=== PATIENT | male | born 1965 | race Two or more races ===

== ENCOUNTER 2019-11-07 17:01 | Emergency (ER) | payer MEDICAID, OTHER ==
[~2019-11-07] VITALS: Ht 180.3 cm; Wt 88.5 kg
[2019-11-07 17:09] VITALS: BP 161/95
[2019-11-07] MEDS ORDERED: IBUPROFEN 600 MG TAB PO ONE (18:00)
== END 2019-11-07 18:29 | disposition home or self-care (01) ==
LOC: ER 17:01
DX: M79.10 Myalgia, unspecified site (principal)
CPT/HCPCS: 71046

== ENCOUNTER 2020-10-27 19:33 | Inpatient (IN) | payer MEDICAID ==
[~2020-10-27] VITALS: Ht 177.8 cm; Wt 87.0 kg
[2020-10-27] MEDS ORDERED: cloNIDine HCL 0.1 MG TAB PO ONE ×2 (20:15→23:15)
[2020-10-27 20:36] LABS: Basophils # (auto) 0.1 10 ^3/uL (0-0.2); Eosinophils # (auto) 0.1 10 ^3/uL (0-0.8); Eosinophils % (auto) 1.6 % (0.0-7.0); Hematocrit 43.9 % (41.0-53.0); Hemoglobin 14.6 g/dL (13.5-17.5); Lymphocytes # (auto) 1.9 10 ^3/uL (0.4-5.4); Lymphocytes % (auto) 22.9 % (10.0-50.0); Mean Corpuscular Hemoglobin 27.9 pg (28.0-32.0); Mean Corpuscular Hgb Conc. 33.2 g/dL (32.0-36.0); Monocytes # (auto) 0.9 10 ^3/uL (0-1.3); Monocytes % (auto) 10.6 % (0.0-12.0); Neutrophils # (auto) 5.2 10 ^3/uL (1.6-8.6); Neutrophils % (auto) 63.9 % (37.0-80.0); Nucleated Red Blood Cells % 0.2 %; Platelet Count (auto) 235 10^3/uL (140-450); Red Blood Cells 5.23 10^6/uL (4.5-5.90); Red Cell Distribution Width 14.3 % (11.8-14.3); White Blood Cell 8.1 10^3/uL (4.4-10.8)
[2020-10-27 20:50] LABS: Alanine Aminotransferase 59 U/L (16-61); Albumin 2.9 g/dL (3.4-5.0); Anion Gap 8 (5-15); Aspartate Aminotransferase 41 U/L (15-37); Blood Urea Nitrogen 16 mg/dL (7-18); Calcium 8.2 mg/dL (8.5-10.1); Carbon Dioxide 27 mmol/L (21-32); Chloride 107 mmol/L (98-107); GFR African American 72 mL/min; GFR Non-African American 59 mL/min; Glucose 90 mg/dL (74-106); Potassium 4.2 mmol/L (3.5-5.1); Sodium 142 mmol/L (136-145)
[2020-10-27 20:54] LABS: Alkaline Phosphatase 93 U/L (45-117); Bilirubin, Total 0.8 mg/dL (0.2-1.0); Total Protein 6.5 g/dL (6.4-8.2)
[2020-10-27 21:01] LABS: INR 1.01 (0.9-1.15); Partial Thromboplastin Time 26.4 sec (23.0-31.2)
[2020-10-27] MEDS ORDERED: IOPAMIDOL 76 % (ISOVUE-370) 100ML BTL IV ONE (22:08)
[2020-10-27] MEDS ORDERED: SODIUM CHLORIDE 0.9% 1,000 ML IV ONE (23:15)
[2020-10-28] MEDS ORDERED: FUROSEMIDE 20 MG/2 ML VIAL IV ONE (01:00)
[2020-10-28] MEDS ORDERED: ONDANSETRON HCL 4 MG/2 ML VIAL IV PRN (01:00)
[2020-10-28] MEDS ORDERED: TEMAZEPAM 15 MG CAP PO PRN (01:00)
[2020-10-28] MEDS ORDERED: MORPHINE SULF INJ 2 MG/ML SYRINGE 1ML IV PRN (01:00)
[2020-10-28] MEDS ORDERED: NITROGLYCERIN 0.4 MG SL TAB SL PRN (01:00)
[2020-10-28 02:18] LABS: Alcohol, Urine < 3.0 mg/dL (0-10); Amphetamine Screen, Urine POSITIVE (NEGATIVE); Barbiturate Scree,Urine NEGATIVE (NEGATIVE); Benzodiazephine Screen, Urine NEGATIVE (NEGATIVE); Cannabinoid Screen, Urine POSITIVE (NEGATIVE); Cocaine Screen, Urine NEGATIVE (NEGATIVE); Opiate Scree,Urine NEGATIVE (NEGATIVE); Phencyclidine Screen, Urine NEGATIVE (NEGATIVE)
[2020-10-28] MEDS ORDERED: dilTIAZem 25 MG/5 ML VIAL IV ONE (08:15)
[2020-10-28] MEDS: dilTIAZem 120MG ER CAP PO SCH ×2 (08:52→09:52)
[2020-10-28] MEDS ORDERED: ASPirin 81 mg TAB PO SCH (10:00)
[2020-10-28] MEDS ORDERED: ENOXAPARIN SOD 40 MG/0.4 ML SYRINGE SC SCH (10:00)
[2020-10-28] MEDS ORDERED: FUROSEMIDE 40 MG TAB PO SCH (10:00)
[2020-10-28] MEDS: CARVEDILOL 3.125 MG TAB PO SCH ×2 (10:18→21:44)
[2020-10-28] MEDS: FAMOTIDINE 20 MG TAB PO SCH ×2 (10:18→21:42)
[2020-10-28] MEDS ORDERED: AMIODARONE HCL 200 MG TAB PO ONE (14:30)
[2020-10-28 17:00] VITALS: BP 121/92
[2020-10-28] MEDS: ACETAMINOPHEN 325 MG TAB PO PRN (17:03)
[2020-10-28] MEDS: AMIODARONE HCL 200 MG TAB PO SCH (21:42)
[2020-10-28] MEDS: ATORVASTATIN 20 MG TAB PO SCH (21:43)
[2020-10-28] MEDS: ENOXAPARIN SOD 100 MG/1 ML SYRINGE SC SCH (21:43)
[2020-10-28 22:00] VITALS: BP 116/87
[2020-10-29 05:00] VITALS: BP 109/74
[2020-10-29] MEDS: ACETAMINOPHEN 325 MG TAB PO PRN ×2 (06:29→16:23)
[2020-10-29 07:10] LABS: Basophils # (auto) 0.1 10 ^3/uL (0-0.2); Eosinophils # (auto) 0.1 10 ^3/uL (0-0.8); Eosinophils % (auto) 1.5 % (0.0-7.0); Hematocrit 47.3 % (41.0-53.0); Hemoglobin 15.8 g/dL (13.5-17.5); Lymphocytes # (auto) 1.8 10 ^3/uL (0.4-5.4); Lymphocytes % (auto) 20.2 % (10.0-50.0); Mean Corpuscular Hemoglobin 27.8 pg (28.0-32.0); Mean Corpuscular Hgb Conc. 33.5 g/dL (32.0-36.0); Mean Corpuscular Volume 83.1 fL (80.0-100.0); Monocytes # (auto) 0.9 10 ^3/uL (0-1.3); Neutrophils % (auto) 67.3 % (37.0-80.0); Nucleated Red Blood Cells % 0.2 %; Platelet Count (auto) 243 10^3/uL (140-450); Red Cell Distribution Width 13.9 % (11.8-14.3); White Blood Cell 8.9 10^3/uL (4.4-10.8)
[2020-10-29 07:33] LABS: Potassium 3.7 mmol/L (3.5-5.1)
[2020-10-29 07:42] LABS: Albumin 2.9 g/dL (3.4-5.0); BUN/Creatinine Ratio 14.7; Bilirubin, Total 1.9 mg/dL (0.2-1.0); Calcium 9.3 mg/dL (8.5-10.1); Total Protein 6.7 g/dL (6.4-8.2)
[2020-10-29 09:00] VITALS: BP 107/81
[2020-10-29] MEDS ORDERED: ENOXAPARIN SOD 40 MG/0.4 ML SYRINGE SC SCH (10:00)
[2020-10-29] MEDS: FUROSEMIDE 40 MG/4 ML VIAL IV SCH (12:03)
[2020-10-29] MEDS: ASPirin 81 mg TAB PO SCH (12:04)
[2020-10-29] MEDS: AMIODARONE HCL 200 MG TAB PO SCH ×2 (12:05→21:54)
[2020-10-29] MEDS: CARVEDILOL 3.125 MG TAB PO SCH ×2 (12:05→21:55)
[2020-10-29] MEDS: FAMOTIDINE 20 MG TAB PO SCH ×2 (12:06→21:55)
[2020-10-29] MEDS: ENOXAPARIN SOD 100 MG/1 ML SYRINGE SC SCH (12:06)
[2020-10-29 13:00] VITALS: BP 109/79
[2020-10-29] MEDS: DIGOXIN (250MCG/ML) 2 ML AMPULE IV SCH ×2 (15:17→18:31)
[2020-10-29] MEDS ORDERED: HYDROcodone-ACET 5/325MG TAB PO PRN (16:30)
[2020-10-29 16:32] VITALS: BP 123/94
[2020-10-29 21:28] VITALS: BP 132/88
[2020-10-29] MEDS: ATORVASTATIN 20 MG TAB PO SCH (21:54)
[2020-10-29] MEDS: APIXABAN 5 MG TAB PO SCH (21:54)
[2020-10-30] MEDS: DIGOXIN (250MCG/ML) 2 ML AMPULE IV SCH (00:29)
[2020-10-30 05:30] VITALS: BP 113/70
[2020-10-30 08:50] VITALS: BP 127/92
[2020-10-30] MEDS: APIXABAN 5 MG TAB PO SCH (09:05)
[2020-10-30] MEDS: CARVEDILOL 3.125 MG TAB PO SCH (09:05)
[2020-10-30] MEDS: FAMOTIDINE 20 MG TAB PO SCH (09:05)
[2020-10-30] MEDS: AMIODARONE HCL 200 MG TAB PO SCH (09:05)
[2020-10-30] MEDS: ASPirin 81 mg TAB PO SCH (09:05)
[2020-10-30] MEDS: FUROSEMIDE 40 MG/4 ML VIAL IV SCH (09:05)
[2020-10-30] MEDS ORDERED: DIGOXIN 0.25 MG TAB PO SCH (10:00)
[2020-10-30] MEDS ORDERED: DIGO0.12 PO (12:45)
[2020-10-30] MEDS ORDERED: POTA10TA51 PO (12:45)
[2020-10-30] MEDS ORDERED: ATOR10TA52 PO (12:45)
[2020-10-30] MEDS ORDERED: APIX5TAB PO (12:45)
[2020-10-30] MEDS ORDERED: FURO40TA4 PO (12:45)
[2020-10-30] MEDS ORDERED: CAR125T PO (12:46)
[2020-10-30] MEDS ORDERED: ENAL2.5T11 PO (12:46)
== END 2020-10-30 15:20 | disposition home or self-care (01) | DRG 201 ==
LOC: ER 19:33 → TELE 19:34 → TELE-WESTW 10-28 15:49
PROVIDERS: ADMIT Nurse Practitioner; ATTEND Internal Medicine
PROC: 0W993ZZ Drainage of Right Pleural Cavity, Percutaneous Approach (ICD-10-PCS; principal; 2020-10-28)
DX: I48.19 Other persistent atrial fibrillation (principal); E44.0 Moderate protein-calorie malnutrition; I31.3 Pericardial effusion (noninflammatory); I50.41 Acute combined systolic (congestive) and diastolic (congestive) heart failure; J44.9 Chronic obstructive pulmonary disease, unspecified; E78.5 Hyperlipidemia, unspecified; F15.10 Other stimulant abuse, uncomplicated; F12.90 Cannabis use, unspecified, uncomplicated; F17.210 Nicotine dependence, cigarettes, uncomplicated; R73.9 Hyperglycemia, unspecified; R00.0 Tachycardia, unspecified; Z20.822 Contact with and (suspected) exposure to COVID-19; F19.10 Other psychoactive substance abuse, uncomplicated; I42.7 Cardiomyopathy due to drug and external agent; T43.625A Adverse effect of amphetamines, initial encounter; I11.0 Hypertensive heart disease with heart failure; I48.92 Unspecified atrial flutter; Z91.19 Patient's noncompliance with other medical treatment and regimen; Y92.89 Other specified places as the place of occurrence of the external cause; Z68.27 Body mass index [BMI] 27.0-27.9, adult
CPT/HCPCS: 10022; 36415; 70450; 71045; 71275; 76942; 80053; 80061; 80307; 80320; 82728; 83605; 83880; 83986; 84484; 85025; 85379; 85610; 85730; 87070; 87205; 87426; 89051; 93005; 93306; 93970; 96361; 96374; 96375; G0378

== ENCOUNTER 2020-11-07 00:46 | Emergency (ER) | payer MEDICAID ==
[~2020-11-07] VITALS: Ht 180.3 cm; Wt 90.7 kg
[~2020-11-07 00:46] MED LIST: APIX5TAB PO; ATOR10TA52 PO; CAR125T PO; DIGO0.12 PO; ENAL2.5T11 PO; FURO40TA4 PO; POTA10TA51 PO
[2020-11-07 02:23] LABS: Basophils # (auto) 0.1 10 ^3/uL (0-0.2); Eosinophils # (auto) 0.2 10 ^3/uL (0-0.8); Eosinophils % (auto) 2.9 % (0.0-7.0); Hematocrit 46.8 % (41.0-53.0); Hemoglobin 15.6 g/dL (13.5-17.5); Lymphocytes # (auto) 2.5 10 ^3/uL (0.4-5.4); Lymphocytes % (auto) 29.1 % (10.0-50.0); Mean Corpuscular Hemoglobin 27.8 pg (28.0-32.0); Mean Corpuscular Hgb Conc. 33.3 g/dL (32.0-36.0); Mean Corpuscular Volume 83.4 fL (80.0-100.0); Monocytes # (auto) 1.1 10 ^3/uL (0-1.3); Monocytes % (auto) 12.8 % (0.0-12.0); Neutrophils # (auto) 4.6 10 ^3/uL (1.6-8.6); Neutrophils % (auto) 54.2 % (37.0-80.0); Nucleated Red Blood Cells % 0.1 %; Platelet Count (auto) 291 10^3/uL (140-450); Red Blood Cells 5.61 10^6/uL (4.5-5.90); Red Cell Distribution Width 13.7 % (11.8-14.3); White Blood Cell 8.5 10^3/uL (4.4-10.8)
[2020-11-07 02:42] LABS: Calcium 8.5 mg/dL (8.5-10.1); Chloride 104 mmol/L (98-107); Potassium 4.6 mmol/L (3.5-5.1); Sodium 137 mmol/L (136-145)
[2020-11-07 02:45] LABS: Alanine Aminotransferase 87 U/L (16-61); Albumin 3.3 g/dL (3.4-5.0); Anion Gap 8 (5-15); Aspartate Aminotransferase 55 U/L (15-37); BUN/Creatinine Ratio 48.4; Blood Alcohol < 3.0 mg/dL (0-5); Blood Urea Nitrogen 46 mg/dL (7-18); Carbon Dioxide 25 mmol/L (21-32); GFR African American 105 mL/min; GFR Non-African American 87 mL/min; Glucose 103 mg/dL (74-106); Magnesium 2.2 mg/dL (1.6-2.6)
[2020-11-07 02:48] LABS: Alkaline Phosphatase 71 U/L (45-117); Bilirubin, Total 0.4 mg/dL (0.2-1.0); Total Protein 6.8 g/dL (6.4-8.2)
[2020-11-07 02:50] LABS: Salicylate 2.1 mg/dL (2.8-20.0)
[2020-11-07 02:51] LABS: Acetaminophen < 2.0 ug/mL (10-30)
[2020-11-07 04:38] LABS: Alcohol, Urine < 3.0 mg/dL (0-10); Amphetamine Screen, Urine NEGATIVE (NEGATIVE); Barbiturate Scree,Urine NEGATIVE (NEGATIVE); Benzodiazephine Screen, Urine NEGATIVE (NEGATIVE); Cocaine Screen, Urine NEGATIVE (NEGATIVE); Opiate Scree,Urine NEGATIVE (NEGATIVE); Phencyclidine Screen, Urine NEGATIVE (NEGATIVE)
[2020-11-07 04:45] LABS: Cannabinoid Screen, Urine POSITIVE (NEGATIVE)
[2020-11-07 04:58] LABS: Urine Bacteria NONE SEEN /hpf (None Seen); Urine Blood Negative /uL (Negative); Urine WBC <1 /hpf (0 - 3)
[2020-11-07 05:04] VITALS: BP 93/66
== END 2020-11-07 06:29 | disposition home or self-care (01) ==
LOC: ER 00:46
DX: T44.7X1A Poisoning by beta-adrenoreceptor antagonists, accidental (unintentional), initial encounter (principal); I11.0 Hypertensive heart disease with heart failure; I50.9 Heart failure, unspecified; E78.5 Hyperlipidemia, unspecified; F17.210 Nicotine dependence, cigarettes, uncomplicated; R06.02 Shortness of breath; Y92.9 Unspecified place or not applicable
CPT/HCPCS: 36415; 71045; 80053; 80307; 80320; 80329; 81001; 83735; 83880; 85025; 93005

== ENCOUNTER 2021-03-21 10:16 | Emergency (ER) | payer MEDICAID ==
[~2021-03-21] VITALS: Ht 180.3 cm; Wt 96.2 kg
[2021-03-21 10:16] VITALS: BP 129/83
[2021-03-21 10:49] LABS: Urine Bacteria NONE SEEN /hpf (None Seen); Urine Blood Negative /uL (Negative); Urine Specific Gravity 1.009 (1.001-1.035); Urine WBC <1 /hpf (0 - 3)
[2021-03-21 10:55] LABS: Alcohol, Urine < 3.0 mg/dL (0-10); Amphetamine Screen, Urine NEGATIVE (NEGATIVE); Barbiturate Scree,Urine NEGATIVE (NEGATIVE); Benzodiazephine Screen, Urine NEGATIVE (NEGATIVE); Cannabinoid Screen, Urine NEGATIVE (NEGATIVE); Cocaine Screen, Urine NEGATIVE (NEGATIVE); Opiate Scree,Urine NEGATIVE (NEGATIVE); Phencyclidine Screen, Urine NEGATIVE (NEGATIVE)
[2021-03-21 10:56] LABS: Basophils # (auto) 0 10 ^3/uL (0-0.2); Basophils % (auto) 0.7 % (0.0-2.0); Eosinophils # (auto) 0.2 10 ^3/uL (0-0.8); Eosinophils % (auto) 2.7 % (0.0-7.0); Hematocrit 43.1 % (41.0-53.0); Lymphocytes # (auto) 1.6 10 ^3/uL (0.4-5.4); Lymphocytes % (auto) 23.5 % (10.0-50.0); Mean Corpuscular Hemoglobin 29.1 pg (28.0-32.0); Mean Corpuscular Hgb Conc. 34.8 g/dL (32.0-36.0); Mean Corpuscular Volume 83.8 fL (80.0-100.0); Monocytes # (auto) 0.7 10 ^3/uL (0-1.3); Monocytes % (auto) 9.8 % (0.0-12.0); Neutrophils # (auto) 4.4 10 ^3/uL (1.6-8.6); Neutrophils % (auto) 63.3 % (37.0-80.0); Nucleated Red Blood Cells % 0.1 %; Red Blood Cells 5.14 10^6/uL (4.5-5.90); Red Cell Distribution Width 13.8 % (11.8-14.3)
[2021-03-21 11:11] LABS: Albumin 3.4 g/dL (3.4-5.0); Calcium 9.1 mg/dL (8.5-10.1); Potassium 4.1 mmol/L (3.5-5.1)
[2021-03-21 11:15] LABS: BUN/Creatinine Ratio 22.5; Bilirubin, Total 0.7 mg/dL (0.2-1.0); Total Protein 7.8 g/dL (6.4-8.2)
== END 2021-03-21 11:48 | disposition home or self-care (01) ==
LOC: ER 10:16
DX: R10.31 Right lower quadrant pain (principal); I11.0 Hypertensive heart disease with heart failure; I50.9 Heart failure, unspecified; I48.91 Unspecified atrial fibrillation; E78.5 Hyperlipidemia, unspecified; Z79.899 Other long term (current) drug therapy; Z87.891 Personal history of nicotine dependence
CPT/HCPCS: 36415; 74176; 80053; 80307; 81001; 83690; 85025; 93005

== ENCOUNTER 2022-05-16 02:07 | Inpatient (IN) | payer MEDICAID ==
[~2022-05-16] VITALS: Ht 180.3 cm; Wt 240.0 kg
[2022-05-16 03:46] LABS: Basophils # (auto) 0.1 10 ^3/uL (0-0.2); Eosinophils # (auto) 0.1 10 ^3/uL (0-0.8); Eosinophils % (auto) 1.4 % (0.0-7.0); Hematocrit 45.2 % (41.0-53.0); Hemoglobin 14.6 g/dL (13.5-17.5); Lymphocytes # (auto) 1.6 10 ^3/uL (0.4-5.4); Lymphocytes % (auto) 18.7 % (10.0-50.0); Mean Corpuscular Hemoglobin 27.2 pg (28.0-32.0); Mean Corpuscular Hgb Conc. 32.4 g/dL (32.0-36.0); Mean Corpuscular Volume 84.1 fL (80.0-100.0); Monocytes % (auto) 12.1 % (0.0-12.0); Neutrophils # (auto) 5.8 10 ^3/uL (1.6-8.6); Neutrophils % (auto) 66.8 % (37.0-80.0); Nucleated Red Blood Cells % 0.1 %; Red Blood Cells 5.38 10^6/uL (4.5-5.90); Red Cell Distribution Width 15.1 % (11.8-14.3); White Blood Cell 8.7 10^3/uL (4.4-10.8)
[2022-05-16 04:06] LABS: Potassium 4.7 mmol/L (3.5-5.1)
[2022-05-16 04:17] LABS: Albumin 2.8 g/dL (3.4-5.0); BUN/Creatinine Ratio 28.4; Bilirubin, Total 1.3 mg/dL (0.2-1.0); Calcium 8.4 mg/dL (8.5-10.1)
[2022-05-16] MEDS ORDERED: FUROSEMIDE 40 MG/4 ML VIAL IV ONE (07:30)
[2022-05-16] MEDS ORDERED: IOHEXOL 350 MG/ML 100ML IJ ONE (09:42)
[2022-05-16] MEDS ORDERED: NITROGLYCERIN 0.4 MG SL TAB SL PRN (11:45)
[2022-05-16] MEDS ORDERED: ACETAMINOPHEN 325 MG TAB PO PRN (11:45)
[2022-05-16] MEDS ORDERED: MORPHINE SULFATE INJ 2 MG/ml SYRG IV PRN ×2 (11:45)
[2022-05-16] MEDS ORDERED: HYDROcodone-ACET 5/325MG TAB PO PRN (11:45)
[2022-05-16] MEDS ORDERED: ONDANSETRON HCL 4 MG/2 ML VIAL IV PRN (11:45)
[2022-05-16] MEDS ORDERED: AZITHROMYCIN 500MG/ 250ML 250 ML IV ONE (12:00)
[2022-05-16] MEDS ORDERED: cefTRIAXone 1GM/50ML D5W 50 ML IV ONE (12:00)
[2022-05-16 12:37] LABS: Cholesterol 96 mg/dL (< 200); HDL Cholesterol 33 mg/dL (40-59); LDL Cholesterol 59 mg/dL (< 100); Triglycerides 89 mg/dL (< 150)
[2022-05-16 13:27] LABS: INR 1.24 (0.9-1.15)
[2022-05-16 13:54] LABS: Urine Bacteria NONE SEEN /hpf (None Seen); Urine Blood Negative /uL (Negative); Urine Specific Gravity 1.018 (1.001-1.035); Urine WBC <1 /hpf (0 - 3)
[2022-05-16 14:18] LABS: Alcohol, Urine < 3.0 mg/dL (0-10); Amphetamine Screen, Urine POSITIVE (NEGATIVE); Barbiturate Scree,Urine NEGATIVE (NEGATIVE); Benzodiazephine Screen, Urine NEGATIVE (NEGATIVE); Cannabinoid Screen, Urine POSITIVE (NEGATIVE); Cocaine Screen, Urine NEGATIVE (NEGATIVE); Opiate Scree,Urine NEGATIVE (NEGATIVE); Phencyclidine Screen, Urine NEGATIVE (NEGATIVE)
[2022-05-16] MEDS: CARVEDILOL 12.5 MG TAB PO SCH ×2 (16:01→22:00)
[2022-05-16] MEDS ORDERED: ALBUTEROL SULF 2.5 MG/0.5ML(0.5%) NEB SOLN NEB ONE (19:15)
[2022-05-16] MEDS ORDERED: IPRATROPIUM BROM 0.5 MG/2.5ML INH SOL NEB ONE (19:15)
[2022-05-16] MEDS ORDERED: CARVEDILOL 12.5 MG TAB PO SCH (22:00)
[2022-05-16] MEDS: APIXABAN 5 MG TAB PO SCH (22:00)
[2022-05-17 06:53] LABS: Basophils # (auto) 0.1 10 ^3/uL (0-0.2); Basophils % (auto) 1.1 % (0.0-2.0); Eosinophils # (auto) 0.1 10 ^3/uL (0-0.8); Eosinophils % (auto) 1.4 % (0.0-7.0); Hematocrit 44.1 % (41.0-53.0); Hemoglobin 14.4 g/dL (13.5-17.5); Lymphocytes # (auto) 1.5 10 ^3/uL (0.4-5.4); Lymphocytes % (auto) 17.7 % (10.0-50.0); Mean Corpuscular Hemoglobin 27.2 pg (28.0-32.0); Mean Corpuscular Hgb Conc. 32.6 g/dL (32.0-36.0); Mean Corpuscular Volume 83.6 fL (80.0-100.0); Monocytes % (auto) 11.8 % (0.0-12.0); Neutrophils # (auto) 5.9 10 ^3/uL (1.6-8.6); Nucleated Red Blood Cells % 0.2 %; Red Blood Cells 5.27 10^6/uL (4.5-5.90); Red Cell Distribution Width 14.9 % (11.8-14.3); White Blood Cell 8.7 10^3/uL (4.4-10.8)
[2022-05-17] MEDS ORDERED: REGADENOSON 0.4 MG/5 ML SYRG IV ONE ×2 (07:30→08:46)
[2022-05-17 08:39] VITALS: BP 121/92
[2022-05-17] MEDS ORDERED: cefTRIAXone 1GM/50ML D5W 50 ML IV SCH (09:00)
[2022-05-17] MEDS: CARVEDILOL 12.5 MG TAB PO SCH (09:50)
[2022-05-17] MEDS: ATORVASTATIN 20 MG TAB PO SCH ×2 (09:50→09:52)
[2022-05-17] MEDS: NICOTINE 7MG/24HR TOPICAL PATCH TD SCH ×2 (09:52→10:00)
[2022-05-17] MEDS ORDERED: DIGOXIN 0.125 MG TAB PO SCH (10:00)
[2022-05-17] MEDS ORDERED: POTASSIUM CHL 10 Meq TABLET PO SCH (10:00)
[2022-05-17] MEDS ORDERED: AZITHROMYCIN 500MG/ 250ML 250 ML IV SCH (10:00)
[2022-05-17] MEDS ORDERED: FUROSEMIDE 20 MG/2 ML VIAL IV SCH (10:00)
[2022-05-17] MEDS ORDERED: ENALAPRIL MALEATE 2.5 MG TAB PO SCH (10:00)
[2022-05-17] MEDS ORDERED: PANTOPRAZOLE 40 MG/10 ML VIAL INJ IV SCH (10:00)
[2022-05-17] MEDS: APIXABAN 5 MG TAB PO SCH (10:08)
[2022-05-17] MEDS ORDERED: metOLazone 5 MG TAB PO ONE (11:45)
[2022-05-17 18:00] VITALS: BP 98/80
== END 2022-05-17 19:01 | disposition home or self-care (01) | DRG 194 ==
LOC: EDBD 02:07 → ER 02:07 → TELE 11:51
PROVIDERS: ADMIT Registered Nurse; ATTEND Internal Medicine
DX: I11.0 Hypertensive heart disease with heart failure (principal); E43 Unspecified severe protein-calorie malnutrition; D68.59 Other primary thrombophilia; I42.0 Dilated cardiomyopathy; Z68.45 Body mass index [BMI] 70 or greater, adult; I48.20 Chronic atrial fibrillation, unspecified; I50.23 Acute on chronic systolic (congestive) heart failure; E78.5 Hyperlipidemia, unspecified; Z20.822 Contact with and (suspected) exposure to COVID-19; F19.10 Other psychoactive substance abuse, uncomplicated; E66.01 Morbid (severe) obesity due to excess calories; F15.90 Other stimulant use, unspecified, uncomplicated; Z72.0 Tobacco use; Z82.3 Family history of stroke; Z91.199 Patient's noncompliance with other medical treatment and regimen due to unspecified reason
CPT/HCPCS: 36415; 71045; 71275; 78452; 80053; 80061; 80307; 81001; 83036; 83880; 84443; 84484; 85025; 85610; 87040; 87426; 93005; 93017; 93306; 94640; 96365; 96375; 99291; C9113; G0378; J0696

== ENCOUNTER 2022-09-01 17:22 | Inpatient (IN) | payer MEDICAID ==
[~2022-09-01] VITALS: Ht 180.3 cm; Wt 92.6 kg
[2022-09-01 17:58] LABS: Basophils # (auto) 0.1 10 ^3/uL (0-0.2); Eosinophils # (auto) 0.1 10 ^3/uL (0-0.8); Hemoglobin 13.7 g/dL (13.5-17.5); Nucleated Red Blood Cells % 0.3 %
[2022-09-01 17:59] LABS: Basophils % (auto) 0.9 % (0.0-2.0); Hematocrit 43.6 % (41.0-53.0); Lymphocytes # (auto) 1.3 10 ^3/uL (0.4-5.4); Lymphocytes % (auto) 15.1 % (10.0-50.0); Mean Corpuscular Hemoglobin 23.6 pg (28.0-32.0); Mean Corpuscular Hgb Conc. 31.4 g/dL (32.0-36.0); Mean Corpuscular Volume 75.2 fL (80.0-100.0); Monocytes # (auto) 1.2 10 ^3/uL (0-1.3); Monocytes % (auto) 14.1 % (0.0-12.0); Neutrophils # (auto) 6.1 10 ^3/uL (1.6-8.6); Neutrophils % (auto) 68.9 % (37.0-80.0); Red Blood Cells 5.79 10^6/uL (4.5-5.90); Red Cell Distribution Width 17.3 % (11.8-14.3); White Blood Cell 8.9 10^3/uL (4.4-10.8)
[2022-09-01 18:17] LABS: Albumin 2.9 g/dL (3.4-5.0); Calcium 9.4 mg/dL (8.5-10.1); Potassium 4.1 mmol/L (3.5-5.1)
[2022-09-01 18:19] LABS: BUN/Creatinine Ratio 24.3
[2022-09-01 18:22] LABS: Bilirubin, Total 3.6 mg/dL (0.2-1.0)
[2022-09-01 18:52] LABS: INR 1.29 (0.9-1.15); Partial Thromboplastin Time 29.9 sec (24.6-33.4)
[2022-09-01] MEDS ORDERED: FUROSEMIDE 100 MG/10ML VIAL IV ONE (19:00)
[2022-09-01] MEDS ORDERED: ASPirin 325 MG TAB PO ONE (20:00)
[2022-09-01] MEDS ORDERED: ALBUTEROL SULF 2.5 MG/0.5ML(0.5%) NEB SOLN NEB PRN (23:00)
[2022-09-01] MEDS ORDERED: IPRATROPIUM BROM 0.5 MG/2.5ML INH SOL NEB PRN (23:00)
[2022-09-01] MEDS ORDERED: ONDANSETRON HCL 4 MG/2 ML VIAL IV PRN (23:00)
[2022-09-01] MEDS ORDERED: DOCUSATE SOD 100 MG CAP PO PRN (23:00)
[2022-09-01] MEDS ORDERED: ACETAMINOPHEN 325 MG TAB PO PRN (23:00)
[2022-09-01 23:25] VITALS: BP 146/103
[2022-09-02] MEDS ORDERED: MORPHINE SULFATE INJ 2 MG/ml SYRG IV PRN (02:30)
[2022-09-02] MEDS ORDERED: NITROGLYCERIN 0.4 MG SL TAB SL PRN (02:30)
[2022-09-02] MEDS: SODIUM CHLOR 0.9% PF (SALINE LOCK) 10ML VIAL/SYR IV SCH ×3 (06:00→22:00)
[2022-09-02 07:33] LABS: Basophils # (auto) 0.1 10 ^3/uL (0-0.2); Eosinophils # (auto) 0.1 10 ^3/uL (0-0.8); Mean Corpuscular Hemoglobin 23.5 pg (28.0-32.0); Mean Corpuscular Hgb Conc. 31.6 g/dL (32.0-36.0); Nucleated Red Blood Cells % 0.3 %
[2022-09-02 07:36] LABS: Basophils % (auto) 1.2 % (0.0-2.0); Eosinophils % (auto) 1.8 % (0.0-7.0); Hematocrit 42.3 % (41.0-53.0); Hemoglobin 13.4 g/dL (13.5-17.5); Lymphocytes # (auto) 1.4 10 ^3/uL (0.4-5.4); Lymphocytes % (auto) 17.1 % (10.0-50.0); Mean Corpuscular Volume 74.6 fL (80.0-100.0); Monocytes # (auto) 1.2 10 ^3/uL (0-1.3); Monocytes % (auto) 15.4 % (0.0-12.0); Neutrophils # (auto) 5.2 10 ^3/uL (1.6-8.6); Neutrophils % (auto) 64.5 % (37.0-80.0); Red Blood Cells 5.68 10^6/uL (4.5-5.90); Red Cell Distribution Width 17.4 % (11.8-14.3)
[2022-09-02 07:38] LABS: Albumin 2.7 g/dL (3.4-5.0); Calcium 9.2 mg/dL (8.5-10.1); Potassium 4.1 mmol/L (3.5-5.1)
[2022-09-02 07:40] LABS: BUN/Creatinine Ratio 24.4
[2022-09-02 07:43] LABS: Bilirubin, Total 4.3 mg/dL (0.2-1.0); Total Protein 6.7 g/dL (6.4-8.2)
[2022-09-02] MEDS: methylPREDNISolone SOD SUCC 40 MG/ML VL IV SCH ×3 (08:29→23:11)
[2022-09-02] MEDS: FUROSEMIDE 40 MG/4 ML VIAL IV SCH (11:18)
[2022-09-02] MEDS: FAMOTIDINE (10MG/ML) 2ML VL IV SCH ×2 (11:18→23:09)
[2022-09-02] MEDS: APIXABAN 2.5 MG TAB PO SCH ×2 (11:19→23:10)
[2022-09-02] MEDS: ASPirin 81 mg TAB PO SCH (11:19)
[2022-09-02] MEDS: CARVEDILOL 3.125 MG TAB PO SCH ×3 (11:19→23:11)
[2022-09-02 22:25] VITALS: BP 116/80
[2022-09-02 23:57] VITALS: BP 116/80
[2022-09-03] VITALS (7 sets, daily range): BP systolic 120–139; BP diastolic 86–107
[2022-09-03] MEDS: methylPREDNISolone SOD SUCC 40 MG/ML VL IV SCH ×3 (05:56→21:42)
[2022-09-03] MEDS: SODIUM CHLOR 0.9% PF (SALINE LOCK) 10ML VIAL/SYR IV SCH ×3 (05:56→21:42)
[2022-09-03] MEDS: ASPirin 81 mg TAB PO SCH (09:16)
[2022-09-03] MEDS: FAMOTIDINE (10MG/ML) 2ML VL IV SCH ×2 (09:16→21:42)
[2022-09-03] MEDS: FUROSEMIDE 40 MG/4 ML VIAL IV SCH (09:16)
[2022-09-03] MEDS: CARVEDILOL 3.125 MG TAB PO SCH ×2 (09:17→21:43)
[2022-09-03] MEDS: APIXABAN 2.5 MG TAB PO SCH ×2 (09:32→21:42)
[2022-09-03] MEDS: HYDROcodone-ACET 5/325MG TAB PO PRN (22:23)
[2022-09-04 05:00] VITALS: BP 129/92
[2022-09-04] MEDS: methylPREDNISolone SOD SUCC 40 MG/ML VL IV SCH ×3 (05:22→22:14)
[2022-09-04] MEDS: HYDROcodone-ACET 5/325MG TAB PO PRN ×2 (05:23→13:25)
[2022-09-04] MEDS: SODIUM CHLOR 0.9% PF (SALINE LOCK) 10ML VIAL/SYR IV SCH ×3 (05:25→22:14)
[2022-09-04 05:40] LABS: Hemoglobin 13.9 g/dL (13.5-17.5); Red Blood Cells 5.95 10^6/uL (4.5-5.90)
[2022-09-04 05:45] LABS: Hematocrit 44.7 % (41.0-53.0); Mean Corpuscular Hemoglobin 23.4 pg (28.0-32.0); Mean Corpuscular Hgb Conc. 31.1 g/dL (32.0-36.0); Mean Corpuscular Volume 75.2 fL (80.0-100.0); Red Cell Distribution Width 17.4 % (11.8-14.3); White Blood Cell 20.3 10^3/uL (4.4-10.8)
[2022-09-04 06:02] LABS: Magnesium 2.4 mg/dL (1.6-2.6); Potassium 4.3 mmol/L (3.5-5.1)
[2022-09-04 06:05] LABS: BUN/Creatinine Ratio 29.3; Basophils % (manual) 0 (0.0-2.0); Blast Cells 0; Calcium 9.1 mg/dL (8.5-10.1); Eosinophils % (manual) 0 (0-7); Metamyelocytes % 0; Monocytes % (manual) 0 (0-12); Myelocytes % 0; Promyelocytes % 0; Reactive Lymphocytes 0
[2022-09-04 07:05] LABS: Band Neutrophils % (manual) 4; Lymphocytes % (manual) 4 (10.0-50.0)
[2022-09-04 08:00] VITALS: BP 127/92
[2022-09-04 09:00] VITALS: BP 127/92
[2022-09-04] MEDS: CARVEDILOL 3.125 MG TAB PO SCH ×2 (10:00→22:00)
[2022-09-04] MEDS: FAMOTIDINE (10MG/ML) 2ML VL IV SCH ×2 (10:06→22:13)
[2022-09-04] MEDS: FUROSEMIDE 40 MG/4 ML VIAL IV SCH (10:06)
[2022-09-04] MEDS: ASPirin 81 mg TAB PO SCH (10:06)
[2022-09-04] MEDS: APIXABAN 2.5 MG TAB PO SCH ×2 (10:09→22:14)
[2022-09-04 12:40] VITALS: BP 127/96
[2022-09-04 17:00] VITALS: BP 128/100
[2022-09-04 22:00] VITALS: BP 126/92
[2022-09-05 02:09] VITALS: BP 128/100
[2022-09-05 05:00] VITALS: BP 142/106
[2022-09-05] MEDS: methylPREDNISolone SOD SUCC 40 MG/ML VL IV SCH ×3 (06:08→21:15)
[2022-09-05] MEDS: SODIUM CHLOR 0.9% PF (SALINE LOCK) 10ML VIAL/SYR IV SCH ×3 (06:08→21:17)
[2022-09-05 08:00] VITALS: BP 133/98
[2022-09-05] MEDS: FAMOTIDINE (10MG/ML) 2ML VL IV SCH ×2 (10:15→21:17)
[2022-09-05] MEDS: FUROSEMIDE 40 MG/4 ML VIAL IV SCH (10:15)
[2022-09-05] MEDS: ASPirin 81 mg TAB PO SCH (10:16)
[2022-09-05] MEDS: APIXABAN 2.5 MG TAB PO SCH ×2 (10:20→21:17)
[2022-09-05] MEDS: CARVEDILOL 3.125 MG TAB PO SCH ×2 (11:00→21:16)
[2022-09-05 12:00] VITALS: BP 134/91
[2022-09-05] MEDS ORDERED: AMIODARONE HCL 200 MG TAB PO ONE (12:30)
[2022-09-05 13:41] LABS: BUN/Creatinine Ratio 32.6; Calcium 8.9 mg/dL (8.5-10.1); Potassium 3.6 mmol/L (3.5-5.1)
[2022-09-05 16:00] VITALS: BP 116/84
[2022-09-05] MEDS: DOBUTamine 1000MCG/ML 250 ML IV SCH ×2 (16:12→19:30)
[2022-09-05] MEDS ORDERED: IPRATROPIUM BROM 0.5 MG/2.5ML INH SOL ONE (20:38)
[2022-09-05] MEDS ORDERED: ALBUTEROL MEDNEB 2.5 mg/3ml NEB ONE (20:38)
[2022-09-05] MEDS: SACUBITRIL-VALSARTAN 24mg/26mg TAB PO SCH (21:14)
[2022-09-05] MEDS: AMIODARONE HCL 200 MG TAB PO SCH (21:17)
[2022-09-05 22:00] VITALS: BP 121/84
[2022-09-06 05:00] VITALS: BP 112/83
[2022-09-06] MEDS: EMPAGLIFLOZIN 10 MG TAB PO SCH (06:01)
[2022-09-06] MEDS: SODIUM CHLOR 0.9% PF (SALINE LOCK) 10ML VIAL/SYR IV SCH ×3 (06:01→21:40)
[2022-09-06] MEDS: methylPREDNISolone SOD SUCC 40 MG/ML VL IV SCH ×3 (06:01→21:39)
[2022-09-06 06:28] LABS: Magnesium 2.8 mg/dL (1.6-2.6); Potassium 3.9 mmol/L (3.5-5.1)
[2022-09-06 06:35] LABS: Basophils # (auto) 0 10 ^3/uL (0-0.2); Eosinophils # (auto) 0 10 ^3/uL (0-0.8); Nucleated Red Blood Cells % 0.1 %; Red Blood Cells 6.05 10^6/uL (4.5-5.90); White Blood Cell 14.9 10^3/uL (4.4-10.8)
[2022-09-06 06:41] LABS: Basophils % (auto) 0.1 % (0.0-2.0); Hematocrit 45.6 % (41.0-53.0); Lymphocytes # (auto) 0.6 10 ^3/uL (0.4-5.4); Lymphocytes % (auto) 4.1 % (10.0-50.0); Mean Corpuscular Hemoglobin 23.2 pg (28.0-32.0); Mean Corpuscular Hgb Conc. 30.7 g/dL (32.0-36.0); Mean Corpuscular Volume 75.4 fL (80.0-100.0); Monocytes # (auto) 0.6 10 ^3/uL (0-1.3); Monocytes % (auto) 3.9 % (0.0-12.0); Neutrophils # (auto) 13.7 10 ^3/uL (1.6-8.6); Neutrophils % (auto) 91.9 % (37.0-80.0); Red Cell Distribution Width 17.1 % (11.8-14.3)
[2022-09-06 06:56] LABS: Alcohol, Urine < 3.0 mg/dL (0-10); Amphetamine Screen, Urine NEGATIVE (NEGATIVE); Barbiturate Scree,Urine NEGATIVE (NEGATIVE); Benzodiazephine Screen, Urine NEGATIVE (NEGATIVE); Cannabinoid Screen, Urine POSITIVE (NEGATIVE); Cocaine Screen, Urine NEGATIVE (NEGATIVE)
[2022-09-06 06:58] LABS: Urine Bacteria NONE SEEN /hpf (None Seen); Urine Blood Negative /uL (Negative); Urine WBC <1 /hpf (0 - 3)
[2022-09-06 07:04] LABS: Opiate Scree,Urine NEGATIVE (NEGATIVE); Phencyclidine Screen, Urine NEGATIVE (NEGATIVE)
[2022-09-06 08:00] VITALS: BP 120/86
[2022-09-06] MEDS: FAMOTIDINE (10MG/ML) 2ML VL IV SCH ×2 (10:00→21:39)
[2022-09-06] MEDS: APIXABAN 2.5 MG TAB PO SCH ×2 (10:01→21:40)
[2022-09-06] MEDS: ASPirin 81 mg TAB PO SCH (10:01)
[2022-09-06] MEDS: FUROSEMIDE 40 MG/4 ML VIAL IV SCH (10:01)
[2022-09-06] MEDS: SACUBITRIL-VALSARTAN 24mg/26mg TAB PO SCH ×2 (10:01→21:39)
[2022-09-06] MEDS: CARVEDILOL 3.125 MG TAB PO SCH ×2 (10:02→21:39)
[2022-09-06] MEDS: AMIODARONE HCL 200 MG TAB PO SCH ×2 (10:02→21:39)
[2022-09-06 12:00] VITALS: BP 115/81
[2022-09-06 16:00] VITALS: BP 111/90
[2022-09-06] MEDS: DOBUTamine 1000MCG/ML 250 ML IV SCH (17:44)
[2022-09-06 22:00] VITALS: BP 115/83
[2022-09-07] MEDS: DOBUTamine 1000MCG/ML 250 ML IV SCH (02:22)
[2022-09-07 05:00] VITALS: BP 113/82
[2022-09-07] MEDS: SODIUM CHLOR 0.9% PF (SALINE LOCK) 10ML VIAL/SYR IV SCH ×3 (06:19→22:31)
[2022-09-07] MEDS: methylPREDNISolone SOD SUCC 40 MG/ML VL IV SCH ×3 (06:19→22:31)
[2022-09-07] MEDS: EMPAGLIFLOZIN 10 MG TAB PO SCH (06:19)
[2022-09-07 08:00] VITALS: BP 114/85
[2022-09-07] MEDS: FUROSEMIDE 40 MG/4 ML VIAL IV SCH (09:16)
[2022-09-07] MEDS: ASPirin 81 mg TAB PO SCH (09:16)
[2022-09-07] MEDS: FAMOTIDINE (10MG/ML) 2ML VL IV SCH ×2 (09:16→22:33)
[2022-09-07] MEDS: SACUBITRIL-VALSARTAN 24mg/26mg TAB PO SCH ×2 (09:17→22:32)
[2022-09-07] MEDS: CARVEDILOL 3.125 MG TAB PO SCH ×2 (09:17→22:00)
[2022-09-07] MEDS: AMIODARONE HCL 200 MG TAB PO SCH ×2 (09:17→22:31)
[2022-09-07] MEDS: APIXABAN 2.5 MG TAB PO SCH ×2 (09:21→22:32)
[2022-09-07 12:00] VITALS: BP 101/63
[2022-09-07 16:00] VITALS: BP 102/66
[2022-09-07] MEDS ORDERED: SALINE 0.65 % NASAL SPRAY 45ML BOTTLE EACHNOSTRI ONE (17:45)
[2022-09-07 22:00] VITALS: BP 103/59
[2022-09-08 05:00] VITALS: BP 95/58
[2022-09-08] MEDS: EMPAGLIFLOZIN 10 MG TAB PO SCH (06:28)
[2022-09-08] MEDS: methylPREDNISolone SOD SUCC 40 MG/ML VL IV SCH ×3 (06:28→21:57)
[2022-09-08] MEDS: DOBUTamine 1000MCG/ML 250 ML IV SCH (06:28)
[2022-09-08] MEDS: SODIUM CHLOR 0.9% PF (SALINE LOCK) 10ML VIAL/SYR IV SCH ×3 (06:28→21:57)
[2022-09-08] MEDS: FUROSEMIDE 40 MG/4 ML VIAL IV SCH (08:53)
[2022-09-08] MEDS: SACUBITRIL-VALSARTAN 24mg/26mg TAB PO SCH ×2 (08:54→22:22)
[2022-09-08] MEDS: ASPirin 81 mg TAB PO SCH (08:54)
[2022-09-08] MEDS: FAMOTIDINE (10MG/ML) 2ML VL IV SCH ×2 (08:54→21:56)
[2022-09-08] MEDS: CARVEDILOL 3.125 MG TAB PO SCH ×2 (08:55→21:58)
[2022-09-08] MEDS: AMIODARONE HCL 200 MG TAB PO SCH ×2 (08:55→21:58)
[2022-09-08 09:00] VITALS: BP 124/68
[2022-09-08] MEDS: APIXABAN 2.5 MG TAB PO SCH ×2 (12:07→22:22)
[2022-09-08 13:00] VITALS: BP 106/74
[2022-09-08 17:00] VITALS: BP 104/69
[2022-09-08 22:00] VITALS: BP 107/79
[2022-09-09 05:00] VITALS: BP 100/56
[2022-09-09] MEDS: SODIUM CHLOR 0.9% PF (SALINE LOCK) 10ML VIAL/SYR IV SCH ×2 (06:10→10:39)
[2022-09-09] MEDS: EMPAGLIFLOZIN 10 MG TAB PO SCH (06:11)
[2022-09-09] MEDS: methylPREDNISolone SOD SUCC 40 MG/ML VL IV SCH (06:11)
[2022-09-09 09:00] VITALS: BP 99/65
[2022-09-09] MEDS: FUROSEMIDE 40 MG/4 ML VIAL IV SCH (09:31)
[2022-09-09] MEDS: AMIODARONE HCL 200 MG TAB PO SCH (09:31)
[2022-09-09] MEDS: FAMOTIDINE (10MG/ML) 2ML VL IV SCH (09:31)
[2022-09-09] MEDS: SACUBITRIL-VALSARTAN 24mg/26mg TAB PO SCH (09:31)
[2022-09-09] MEDS: ASPirin 81 mg TAB PO SCH (09:31)
[2022-09-09] MEDS: CARVEDILOL 3.125 MG TAB PO SCH (09:32)
[2022-09-09] MEDS: APIXABAN 2.5 MG TAB PO SCH (09:32)
== END 2022-09-09 12:54 | disposition left against medical advice (07) | DRG 194 ==
LOC: ER 17:22 → TELE 09-02 02:17 → TELE-CENTR 09-02 19:55
PROVIDERS: ADMIT Nurse Practitioner Family; ATTEND Internal Medicine
DX: I11.0 Hypertensive heart disease with heart failure (principal); J96.21 Acute and chronic respiratory failure with hypoxia; I27.20 Pulmonary hypertension, unspecified; E88.09 Other disorders of plasma-protein metabolism, not elsewhere classified; N17.9 Acute kidney failure, unspecified; J44.1 Chronic obstructive pulmonary disease with (acute) exacerbation; I50.23 Acute on chronic systolic (congestive) heart failure; I42.9 Cardiomyopathy, unspecified; Z20.822 Contact with and (suspected) exposure to COVID-19; I48.91 Unspecified atrial fibrillation; J98.11 Atelectasis; E66.01 Morbid (severe) obesity due to excess calories; F15.90 Other stimulant use, unspecified, uncomplicated; Z53.29 Procedure and treatment not carried out because of patient's decision for other reasons; E78.5 Hyperlipidemia, unspecified; Z91.14 Patient's other noncompliance with medication regimen; Z82.3 Family history of stroke; Z87.891 Personal history of nicotine dependence; Z68.35 Body mass index [BMI] 35.0-35.9, adult
CPT/HCPCS: 36415; 71045; 80048; 80053; 80307; 81001; 82962; 83735; 83880; 84484; 85007; 85025; 85027; 85610; 85730; 87426; 93005; 93306; 93970; 94640; 97110; 97116; 97530; G0378; J3490

== ENCOUNTER 2022-09-19 09:14 | Inpatient (IN) | payer MEDICAID ==
[~2022-09-19] VITALS: Ht 175.3 cm; Wt 114.0 kg
[2022-09-19 10:35] LABS: Basophils # (auto) 0 10 ^3/uL (0-0.2); Basophils % (auto) 0.1 % (0.0-2.0); Eosinophils # (auto) 0 10 ^3/uL (0-0.8); Hemoglobin 12.2 g/dL (13.5-17.5); Lymphocytes # (auto) 0.5 10 ^3/uL (0.4-5.4); Mean Corpuscular Hemoglobin 23.8 pg (28.0-32.0); Mean Corpuscular Hgb Conc. 31.4 g/dL (32.0-36.0); Monocytes # (auto) 0.7 10 ^3/uL (0-1.3); Monocytes % (auto) 3.6 % (0.0-12.0); White Blood Cell 20.2 10^3/uL (4.4-10.8)
[2022-09-19 10:36] LABS: Hematocrit 38.9 % (41.0-53.0); Lymphocytes % (auto) 2.6 % (10.0-50.0); Neutrophils # (auto) 18.9 10 ^3/uL (1.6-8.6); Neutrophils % (auto) 93.7 % (37.0-80.0); Red Blood Cells 5.11 10^6/uL (4.5-5.90); Red Cell Distribution Width 18.6 % (11.8-14.3)
[2022-09-19 10:45] LABS: Calcium 8.2 mg/dL (8.5-10.1); Potassium 4.3 mmol/L (3.5-5.1)
[2022-09-19 10:49] LABS: BUN/Creatinine Ratio 32.9; Bilirubin, Total 2.7 mg/dL (0.2-1.0); Total Protein 5.9 g/dL (6.4-8.2)
[2022-09-19] MEDS ORDERED: VANCOMYCIN 1GM/250ML 250 ML IV ONE (12:30)
[2022-09-19] MEDS ORDERED: FUROSEMIDE 100 MG/10ML VIAL IV ONE (12:30)
[2022-09-19] MEDS ORDERED: CEFEPIME 1GM/ 50ML 50 ML IV ONE ×2 (12:30→21:00)
[2022-09-19 12:50] LABS: INR 1.17 (0.9-1.15); Partial Thromboplastin Time 25.8 sec (24.6-33.4)
[2022-09-19] MEDS ORDERED: ONDANSETRON HCL 4 MG/2 ML VIAL IV PRN (19:00)
[2022-09-19] MEDS ORDERED: DOCUSATE SOD 100 MG CAP PO PRN (19:00)
[2022-09-19] MEDS ORDERED: HYDROcodone-ACET 5/325MG TAB PO PRN (19:00)
[2022-09-19] MEDS ORDERED: NITROGLYCERIN 0.4 MG SL TAB SL PRN (19:00)
[2022-09-19] MEDS ORDERED: MORPHINE SULFATE INJ 2 MG/ml SYRG IV PRN (19:00)
[2022-09-19] MEDS ORDERED: ACETAMINOPHEN 325 MG TAB PO PRN (19:00)
[2022-09-19] MEDS ORDERED: PROMETHAZINE HCL 6.25 MG/5 ML ORAL SYRUP PO PRN (20:45)
[2022-09-19 22:58] LABS: Alcohol, Urine < 3.0 mg/dL (0-10); Amphetamine Screen, Urine NEGATIVE (NEGATIVE); Barbiturate Scree,Urine NEGATIVE (NEGATIVE); Benzodiazephine Screen, Urine NEGATIVE (NEGATIVE); Cannabinoid Screen, Urine NEGATIVE (NEGATIVE); Cocaine Screen, Urine NEGATIVE (NEGATIVE); Opiate Scree,Urine NEGATIVE (NEGATIVE); Phencyclidine Screen, Urine NEGATIVE (NEGATIVE)
[2022-09-19] MEDS: CARVEDILOL 3.125 MG TAB PO SCH (23:51)
[2022-09-20 06:05] LABS: Basophils # (auto) 0 10 ^3/uL (0-0.2); Basophils % (auto) 0.3 % (0.0-2.0); Eosinophils # (auto) 0 10 ^3/uL (0-0.8); Eosinophils % (auto) 0.4 % (0.0-7.0); Hemoglobin 11.8 g/dL (13.5-17.5); Lymphocytes # (auto) 1.1 10 ^3/uL (0.4-5.4); Lymphocytes % (auto) 8.2 % (10.0-50.0); Mean Corpuscular Hemoglobin 23.6 pg (28.0-32.0); Mean Corpuscular Hgb Conc. 31.1 g/dL (32.0-36.0); Mean Corpuscular Volume 75.9 fL (80.0-100.0); Monocytes # (auto) 0.9 10 ^3/uL (0-1.3); Monocytes % (auto) 6.3 % (0.0-12.0); Neutrophils # (auto) 11.7 10 ^3/uL (1.6-8.6); Neutrophils % (auto) 84.8 % (37.0-80.0); Red Blood Cells 5.01 10^6/uL (4.5-5.90); Red Cell Distribution Width 18.7 % (11.8-14.3); White Blood Cell 13.8 10^3/uL (4.4-10.8)
[2022-09-20 06:30] LABS: Albumin 2.7 g/dL (3.4-5.0); BUN/Creatinine Ratio 35.2; Bilirubin, Total 2.5 mg/dL (0.2-1.0); Calcium 8.3 mg/dL (8.5-10.1); Total Protein 5.3 g/dL (6.4-8.2)
[2022-09-20 08:45] VITALS: BP 106/81
[2022-09-20 09:00] VITALS: BP 106/81
[2022-09-20] MEDS ORDERED: ENALAPRIL MALEATE 2.5 MG TAB PO SCH (10:00)
[2022-09-20] MEDS ORDERED: PANTOPRAZOLE 40 MG/10 ML VIAL INJ IV SCH (10:00)
[2022-09-20] MEDS ORDERED: CEFEPIME 1GM/ 50ML 50 ML IV SCH (10:00)
[2022-09-20] MEDS: SACUBITRIL-VALSARTAN 24mg/26mg TAB PO SCH (10:49)
[2022-09-20] MEDS: DIGOXIN 0.125 MG TAB PO SCH (10:50)
[2022-09-20] MEDS: ATORVASTATIN 20 MG TAB PO SCH (10:50)
[2022-09-20] MEDS: FUROSEMIDE 40 MG TAB PO SCH (10:50)
[2022-09-20] MEDS: CARVEDILOL 3.125 MG TAB PO SCH ×2 (10:51→22:09)
[2022-09-20 11:55] LABS: Urine WBC None Seen /hpf (0 - 3)
[2022-09-20 12:14] LABS: Urine Bacteria NONE SEEN /hpf (None Seen); Urine Blood Negative /uL (Negative); Urine Hyaline Cast FEW /lpf (0 - 2); Urine Specific Gravity 1.018 (1.001-1.035)
[2022-09-20 13:00] VITALS: BP 101/68
[2022-09-20 17:00] VITALS: BP 96/65
[2022-09-20 22:00] VITALS: BP 103/68
[2022-09-21 05:00] VITALS: BP 95/59
[2022-09-21 05:57] LABS: Basophils # (auto) 0.2 10 ^3/uL (0-0.2); Basophils % (auto) 1.6 % (0.0-2.0); Eosinophils # (auto) 0.5 10 ^3/uL (0-0.8); Hematocrit 38.4 % (41.0-53.0); Hemoglobin 12.1 g/dL (13.5-17.5); Lymphocytes # (auto) 1.6 10 ^3/uL (0.4-5.4); Lymphocytes % (auto) 13.6 % (10.0-50.0); Mean Corpuscular Hgb Conc. 31.6 g/dL (32.0-36.0); Mean Corpuscular Volume 75.8 fL (80.0-100.0); Monocytes # (auto) 0.8 10 ^3/uL (0-1.3); Neutrophils # (auto) 8.5 10 ^3/uL (1.6-8.6); Neutrophils % (auto) 73.8 % (37.0-80.0); Nucleated Red Blood Cells % 0.1 %; Red Blood Cells 5.07 10^6/uL (4.5-5.90); Red Cell Distribution Width 18.5 % (11.8-14.3); White Blood Cell 11.6 10^3/uL (4.4-10.8)
[2022-09-21 06:13] LABS: Calcium 7.9 mg/dL (8.5-10.1); Potassium 3.6 mmol/L (3.5-5.1)
[2022-09-21 06:15] LABS: BUN/Creatinine Ratio 40.6
[2022-09-21 07:01] VITALS: BP 124/79
[2022-09-21] MEDS: FUROSEMIDE 40 MG TAB PO SCH (08:53)
[2022-09-21] MEDS: CARVEDILOL 3.125 MG TAB PO SCH ×2 (08:54→21:31)
[2022-09-21] MEDS: ATORVASTATIN 20 MG TAB PO SCH (08:54)
[2022-09-21] MEDS: DIGOXIN 0.125 MG TAB PO SCH (08:54)
[2022-09-21] MEDS: SACUBITRIL-VALSARTAN 24mg/26mg TAB PO SCH (08:54)
[2022-09-21 09:00] VITALS: BP 97/67
[2022-09-21] MEDS ORDERED: CEFTRIAXONE SODIUM 2 GM in D5W 5% 50 ML IV SCH (10:00)
[2022-09-21 13:00] VITALS: BP 95/65
[2022-09-21 17:00] VITALS: BP 112/71
[2022-09-21] MEDS ORDERED: IOHEXOL 350 MG/ML 100ML IJ ONE (20:18)
[2022-09-21 22:00] VITALS: BP 111/74
[2022-09-22 05:00] VITALS: BP 101/69
[2022-09-22 09:00] VITALS: BP 116/80
[2022-09-22] MEDS: FUROSEMIDE 40 MG TAB PO SCH (09:18)
[2022-09-22] MEDS: ATORVASTATIN 20 MG TAB PO SCH (09:18)
[2022-09-22] MEDS: SACUBITRIL-VALSARTAN 24mg/26mg TAB PO SCH (09:18)
[2022-09-22] MEDS: DIGOXIN 0.125 MG TAB PO SCH (09:19)
[2022-09-22] MEDS: CARVEDILOL 3.125 MG TAB PO SCH (09:19)
[2022-09-22] MEDS ORDERED: METH4PAK PO (11:04)
[2022-09-22] MEDS ORDERED: AZITTAB PO (11:04)
[2022-09-22 13:00] VITALS: BP 94/68
[2022-09-22 15:28] VITALS: BP 94/68
[2022-09-22 17:00] VITALS: BP 95/60
== END 2022-09-22 20:55 | disposition home or self-care (01) | DRG 133 ==
LOC: ER 09:14 → TELE 19:07 → TELE-EAST 09-20 09:02
PROVIDERS: ADMIT Nurse Practitioner Family; ATTEND Internal Medicine Geriatric Medicine
DX: J96.21 Acute and chronic respiratory failure with hypoxia (principal); I50.23 Acute on chronic systolic (congestive) heart failure; N17.9 Acute kidney failure, unspecified; J91.8 Pleural effusion in other conditions classified elsewhere; J44.9 Chronic obstructive pulmonary disease, unspecified; R04.2 Hemoptysis; I11.0 Hypertensive heart disease with heart failure; D72.829 Elevated white blood cell count, unspecified; E78.5 Hyperlipidemia, unspecified; Z20.822 Contact with and (suspected) exposure to COVID-19; I48.91 Unspecified atrial fibrillation; Z79.01 Long term (current) use of anticoagulants; E66.01 Morbid (severe) obesity due to excess calories; Z68.37 Body mass index [BMI] 37.0-37.9, adult; Z82.3 Family history of stroke; Z82.49 Family history of ischemic heart disease and other diseases of the circulatory system; Z82.5 Family history of asthma and other chronic lower respiratory diseases; Z87.891 Personal history of nicotine dependence
CPT/HCPCS: 36415; 71046; 71275; 76604; 80048; 80053; 80162; 80307; 81001; 83880; 84484; 85025; 85379; 85610; 85730; 87426; 93005; 93970; C9113; G0378; J0696; J7060

== ENCOUNTER 2022-10-05 00:12 | Inpatient (IN) | payer MEDICAID ==
[~2022-10-05] VITALS: Ht 180.3 cm; Wt 113.4 kg
[~2022-10-05 00:12] MED LIST changes: +AZITTAB PO; +METH4PAK PO
[2022-10-05 01:04] LABS: Basophils # (auto) 0.1 10 ^3/uL (0-0.2); Eosinophils # (auto) 0.1 10 ^3/uL (0-0.8); Eosinophils % (auto) 0.4 % (0.0-7.0); Monocytes # (auto) 1.4 10 ^3/uL (0-1.3); Neutrophils # (auto) 12.9 10 ^3/uL (1.6-8.6); Nucleated Red Blood Cells % 0.1 %
[2022-10-05 01:05] LABS: Basophils % (auto) 0.8 % (0.0-2.0); Hematocrit 40.8 % (41.0-53.0); Lymphocytes # (auto) 1.2 10 ^3/uL (0.4-5.4); Lymphocytes % (auto) 7.7 % (10.0-50.0); Mean Corpuscular Hemoglobin 24.2 pg (28.0-32.0); Mean Corpuscular Hgb Conc. 31.9 g/dL (32.0-36.0); Mean Corpuscular Volume 75.8 fL (80.0-100.0); Monocytes % (auto) 8.9 % (0.0-12.0); Neutrophils % (auto) 82.2 % (37.0-80.0); Red Blood Cells 5.38 10^6/uL (4.5-5.90); White Blood Cell 15.7 10^3/uL (4.4-10.8)
[2022-10-05 01:15] LABS: Red Cell Distribution Width 22.9 % (11.8-14.3)
[2022-10-05 01:20] LABS: BUN/Creatinine Ratio 24.7; Calcium 8.6 mg/dL (8.5-10.1); Potassium 3.6 mmol/L (3.5-5.1)
[2022-10-05 01:23] LABS: Bilirubin, Total 3.3 mg/dL (0.2-1.0); Total Protein 6.4 g/dL (6.4-8.2)
[2022-10-05] MEDS ORDERED: FUROSEMIDE 20 MG/2 ML VIAL IV ONE (03:15)
[2022-10-05] MEDS ORDERED: methylPREDNISolone SOD SUCC 125 MG/2 ML VL IV ONE (03:30)
[2022-10-05] MEDS ORDERED: NITROGLYCERIN 0.4 MG SL TAB SL PRN (05:45)
[2022-10-05] MEDS ORDERED: TEMAZEPAM 15 MG CAP PO PRN (05:45)
[2022-10-05] MEDS ORDERED: ACETAMINOPHEN 325 MG TAB PO PRN (05:45)
[2022-10-05] MEDS ORDERED: MORPHINE SULFATE INJ 2 MG/ml SYRG IV PRN (05:45)
[2022-10-05] MEDS ORDERED: ONDANSETRON HCL 4 MG/2 ML VIAL IV PRN (05:45)
[2022-10-05] MEDS ORDERED: FUROSEMIDE 20 MG/2 ML VIAL IV SCH (06:00)
[2022-10-05 10:00] VITALS: BP 102/77
[2022-10-05] MEDS ORDERED: ENALAPRIL MALEATE 2.5 MG TAB PO SCH (10:00)
[2022-10-05] MEDS ORDERED: SACUBITRIL-VALSARTAN 24mg/26mg TAB PO SCH (10:00)
[2022-10-05] MEDS ORDERED: DIGOXIN 0.125 MG TAB PO SCH (10:00)
[2022-10-05] MEDS ORDERED: CARVEDILOL 3.125 MG TAB PO SCH (10:00)
[2022-10-05] MEDS ORDERED: PANTOPRAZOLE 40 MG TAB PO SCH (10:00)
[2022-10-05] MEDS ORDERED: ATORVASTATIN 20 MG TAB PO SCH (22:00)
== END 2022-10-06 10:11 | disposition left against medical advice (07) | DRG 194 ==
LOC: ER 00:12 → EDBD 00:12 → TELE 05:33
PROVIDERS: ADMIT Nurse Practitioner; ATTEND Nurse Practitioner Acute Care
DX: I13.0 Hypertensive heart and chronic kidney disease with heart failure and stage 1 through stage 4 chronic kidney disease, or unspecified chronic kidney disease (principal); D68.9 Coagulation defect, unspecified; I48.91 Unspecified atrial fibrillation; J44.9 Chronic obstructive pulmonary disease, unspecified; N18.9 Chronic kidney disease, unspecified; E78.5 Hyperlipidemia, unspecified; I50.23 Acute on chronic systolic (congestive) heart failure; Z20.822 Contact with and (suspected) exposure to COVID-19; R09.89 Other specified symptoms and signs involving the circulatory and respiratory systems; Z53.29 Procedure and treatment not carried out because of patient's decision for other reasons; Z72.0 Tobacco use; Z82.0 Family history of epilepsy and other diseases of the nervous system; Z82.49 Family history of ischemic heart disease and other diseases of the circulatory system; Z88.0 Allergy status to penicillin
CPT/HCPCS: 36415; 71045; 80053; 83880; 84484; 85025; 87426; 96374; 96375; G0378